=== PATIENT | female | born 1965 | race Caucasian/White ===

== ENCOUNTER 2019-03-30 19:37 | Emergency (ER) | payer MEDICAID ==
[~2019-03-30] VITALS: Ht 165.1 cm; Wt 97.8 kg
--- NOTE | 2019-03-30 20:17 | NUR ---
PT AMBULATORY W EASE FROM RESTROOM; PT PWD. FIRST CONTACT WITH PT. PT REPORTS WORSENING LLQ/BILAT FLANK PAIN X THREE DAYS. +NAUSEA, "I HAD BLOOD IN MY STOOL A FEW DAYS AGO". INCREASE IN PAIN WITH 'LEANING FORWARD' AND WITH BM. DENIES TAKING BLOOD THINNERS. SEEN BY [facility] TODAY FOR SAME, SENT TO ED TO RULE OUT DIVERTICULITIS. PT DENIES GI HX/CP/SOB/VAGINAL DC OR BLEEDING/FEVER. HX OF OVARIAN CYSTS. IV ESTABLISHED, LABS DRAWN. BP/SPO2 MONITORING IN PLACE. DAUGHTER AT BEDSIDE.
[2019-03-30 20:43] LABS: MICROSCOPIC NOT IND
[2019-03-30 20:44] LABS: CULTURE INDICATED? NO
[2019-03-30 20:51] LABS: BASOPHILS # (AUTO) 0.03 x10^3/uL (0-0.1); BASOPHILS % (AUTO) 0 % (0-1); EOSINOPHILS % (AUTO) 2 % (1-7); LYMPHOCYTES # (AUTO) 3.65 x10^3/uL (1-3.4); LYMPHOCYTES % (AUTO) 35 % (22-44); MD NO; MEAN CORPUSCULAR HEMOGLOBIN 31.7 pg (27.0-34.8); MEAN CORPUSCULAR HGB CONC 33.3 g/dL (32.4-35.8); MEAN CORPUSCULAR VOLUME 95.1 fL (80-100); MEAN PLATELET VOLUME 8.9 fL (7.4-10.4); MONOCYTES # (AUTO) 0.57 x10^3/uL (0.2-0.8); MONOCYTES % (AUTO) 6 % (2-9); NEUTROPHILS # (AUTO) 6.03 x10^3/uL (1.8-6.8); NEUTROPHILS % (AUTO) 58 % (42-75); PLATELET COUNT 342 x10^3/uL (130-400); RED BLOOD COUNT 4.72 x10^6/uL (3.82-5.3); RED CELL DISTRIBUTION WIDTH 13.1 % (9.6-15.2)
[2019-03-30 20:54] LABS: ALANINE AMINOTRANSFERASE 33 U/L (12-78); ALBUMIN 3.9 g/dL (3.4-5.0); ANION GAP 7 mmol/L (5-15); CALCIUM 9.1 mg/dL (8.5-10.1); CHLORIDE 112 mmol/L (98-107); CREATININE 0.92 mg/dL (0.55-1.02)
[2019-03-30 20:56] LABS: ALKALINE PHOSPHATASE 99 U/L (45-117); BILIRUBIN,TOTAL 0.3 mg/dL (0.2-1.0); TOTAL PROTEIN 7.8 g/dL (6.4-8.2)
[2019-03-30] MEDS ORDERED: SODIUM CHLORIDE FLUSH 10ML SYR IVF ONE (21:00)
--- NOTE | 2019-03-30 21:30 | NUR ---
PT RESTING IN [facility]. CONTINUES TO DENY NEED FOR PAIN MEDICATIONS.
[2019-03-30] MEDS ORDERED: OMNIPAQUE 350 MG/ML, 100ML BOTTLE ONE (21:36)
[2019-03-30 22:14] VITALS: BP 158/98
--- NOTE | 2019-03-30 23:07 | NUR ---
PT RESTING IN [facility] NOTED. PT UPDATED TO POC (RECHECK/DISPO) AND DEMONSTRATES UNDERSTANDING. AWAITING DISPO ORDERS
--- NOTE | 2019-03-30 23:28 | NUR ---
ERP AT BEDSIDE TO DISCUSS POC (DC). IV DC'D. PT OFF MONITORING TO DRESS SELF. AWAITING DC PAPERWORK
--- NOTE | 2019-03-30 23:42 | NUR ---
DC EDUCATION PROVIDED, PT DEMONSTRATES UNDERSTANDING. PT AMBULATED STEADILY TO DC WITH RN AND DAUGHTER
== END 2019-03-30 23:43 | disposition home or self-care (01) ==
LOC: ED 21:05
DX: R10.32 Left lower quadrant pain (principal); R10.31 Right lower quadrant pain; F17.200 Nicotine dependence, unspecified, uncomplicated; Z88.8 Allergy status to other drugs, medicaments and biological substances
CPT/HCPCS: 36415; 74177; 80053; 81003; 83690; 85025; 99284; Q9967